=== PATIENT | male | born 1985 | race African-American/Black ===

== ENCOUNTER 2019-10-31 04:14 | Emergency (ER) | payer SELFPAY ==
[~2019-10-31] VITALS: Ht 188 cm; Wt 86.0 kg
[2019-10-31 05:14] LABS: BASOPHILS % 1.3 % (0.0-2.0); EOSINOPHILS % 0.3 % (0.0-5.0); HEMATOCRIT. 39.8 % (42.0-52.0); HEMOGLOBIN. 13.7 g/dL (14.0-18.0); LYMPHOCYTES % 33.1 % (20.0-50.0); MEAN CORPUSCULAR HEMOGLOBIN 35.4 pg (28.0-32.0); MEAN CORPUSCULAR VOLUME 102.9 fL (80.0-94.0); MEAN PLATELET VOLUME 7.3 fl (7.4-10.4); MONOCYTES % 9.4 % (2.0-8.0); NEUTROPHILS % 55.9 % (40.0-76.0); PLATELET 280 x1000/uL (130-400); RED BLOOD CELL COUNT 3.87 mill/uL (4.7-6.1); RED CELL DISTRIBUTION WIDTH 13.1 % (11.6-14.6)
[2019-10-31 05:15] LABS: CHLORIDE 113 mEq/L (98-107)
[2019-10-31 05:20] LABS: ETHANOL BLOOD 220 mg/dL
[2019-10-31 08:12] VITALS: BP 119/85
== END 2019-10-31 08:18 | disposition home or self-care (01) ==
LOC: ER 04:14
DX: F14.10 Cocaine abuse, uncomplicated (principal); F19.10 Other psychoactive substance abuse, uncomplicated; R41.82 Altered mental status, unspecified; L53.9 Erythematous condition, unspecified; Z98.890 Other specified postprocedural states
CPT/HCPCS: 36415; 80053; 80307; 80320; 80329; 85025; 93005; 99284; Z7610; G0480